=== PATIENT | male | born 1990 | race Caucasian/White ===

== ENCOUNTER 2017-06-09 20:43 | Emergency (ER) | payer BC, OTHER ==
[2017-06-09 20:53] VITALS: BP 100/53; PULSE 63; TEMP 98.6; BMI 31.9
--- NOTE | 2017-06-09 22:09 | PDOC ---
History of Present Illness - History of Present Illness Initial Comments: 06/09/17 22:09 26 y/o M with no PMH presents to the ED with redness and pain on his left hand. Patient reports he thought it was a pimple and tried to pop it. He believes there may be an infection. He denies fever, chills. Denies any other complaints. <Charito Carrasco - Last Filed: 06/09/17 22:09> - History of Present Illness Initial Comments: Otherwise healthy male, specifically no history of diabetes or other systemic disease, presents with a pustule on the dorsum of his left hand. Physical exam: Alert well-developed well-nourished no acute distress cheerful and cooperative Afebrile, vital signs normal HEENT clear Neck supple without bruit mass or nodes Chest clear CV regular without murmur rub or gallop Abdomen benign Skin clear except for 2 mm pustule, dorsum of left hand, minimal surrounding erythema, no progression proximally, no lymphangitic streaking or enlarged nodes in the arm or axilla. Impression: Pustule Plan: Remove the pustule was elevated with a 18-gauge needle after sterile skin prep. No pus or fluid was present. There was a small amount of bleeding. The wound was dressed with bacitracin and wound care instructions were given. If there is any further swelling, drainage, or pain, the patient is instructed to return to the ER or see his primary physician for further evaluation and treatment. Fully ambulatory and in no distress upon discharge to follow-up as recommended <Amaury Doherty - Last Filed: 06/14/17 07:46> - General Chief Complaint: Pain Stated Complaint: PIMPLE WITH PAIN TO LEFT HAND Time Seen by Provider: 06/09/17 21:04 Past History <Charito Carrasco - Last Filed: 06/09/17 22:09> - Past Medical History COPD: No - Surgical History Appendectomy: Yes - Immunization History Immunization Up to Date: Yes - Suicide/Smoking/Psychosocial Hx Smoking Status: No Smoking History: Never smoked Number of Cigarettes Smoked Daily: 0 Hx Alcohol Use: No Drug/Substance Use Hx: No Substance Use Type: None <Amaury Doherty - Last Filed: 06/14/17 07:46> - Past Medical History Allergies/Adverse Reactions: Allergies Allergy/AdvReac Type Severity Reaction Status Date / Time Penicillins Allergy Verified 06/09/17 20:44 Home Medications: Ambulatory Orders NK [No Known Home Medication] 06/09/17 *Physical Exam - Vital Signs Last Vital Signs Temp Pulse Resp BP Pulse Ox 98.6 F 63 18 100/53 99 06/09/17 20:46 06/09/17 20:46 06/09/17 20:46 06/09/17 20:46 06/09/17 20:46 <Charito Carrasco - Last Filed: 06/09/17 22:09> - Vital Signs Last Vital Signs Temp Pulse Resp BP Pulse Ox 98.6 F 63 18 100/53 99 06/09/17 20:46 06/09/17 20:46 06/09/17 20:46 06/09/17 20:46 06/09/17 20:46 <Amaury Doherty - Last Filed: 06/14/17 07:46> *DC/Admit/Observation/Transfer - Attestations Scribe Attestion: 06/09/17 22:09 Documentation prepared by Charito Carrasco, acting as medical claims analyst for Amaury Gray MD. <Charito Carrasco - Last Filed: 06/09/17 22:09> - Discharge Dispostion Admit: No <Amaury Doherty - Last Filed: 06/14/17 07:46> Diagnosis at time of Disposition: Pustule - Discharge Dispostion Disposition: HOME Condition at time of disposition: Improved - Referrals Referrals: Lj Sherman MD [Staff Physician] - 1 week - Patient Instructions Additional Instructions: Keep clean and dry. Wash with soap and water, then apply antibiotic ointment. Keep covered. Recheck in 2-3 days if there is no improvement or if the redness or swelling enlarges. - Post Discharge Activity Forms/Work/School Notes: Back to Work
== END 2017-06-09 22:11 | disposition home or self-care (01) ==
LOC: FER 20:43
DX: L08.9 Local infection of the skin and subcutaneous tissue, unspecified (principal)
CPT/HCPCS: 99281-25